=== PATIENT | male | born 1945 | race Caucasian/White ===

== ENCOUNTER 2016-08-16 10:41 | Emergency (ER) | payer OTHER ==
[~2016-08-16] VITALS: Ht 175.3 cm; Wt 108.9 kg
[~2016-08-16 10:41] MED LIST: JANUVIA25 MG; MEV20; VERAPAMIL120 MG
[2016-08-16 13:46] VITALS: BP 174/86
== END 2016-08-16 13:46 | disposition home or self-care (01) ==
LOC: ED 10:41
DX: L03.031 Cellulitis of right toe (principal); E11.621 Type 2 diabetes mellitus with foot ulcer; L97.519 Non-pressure chronic ulcer of other part of right foot with unspecified severity; E66.9 Obesity, unspecified; E78.5 Hyperlipidemia, unspecified; I11.0 Hypertensive heart disease with heart failure; I50.9 Heart failure, unspecified; R60.0 Localized edema; Z98.890 Other specified postprocedural states; Z86.718 Personal history of other venous thrombosis and embolism; Z89.421 Acquired absence of other right toe(s)
CPT/HCPCS: Q0092

== ENCOUNTER 2017-02-04 09:50 | Inpatient (IN) | payer OTHER ==
[~2017-02-04] VITALS: Ht 175.3 cm; Wt 107.7 kg
[2017-02-04 10:41] LABS: BASOPHIL % 0.5 % (0-2); PLATELET COUNT 220 x10^3mcL (130-400)
[2017-02-04 11:14] LABS: BILIRUBIN TOTAL 0.54 mg/dL (0.20-1.00); CALCIUM 8.6 mg/dL (8.5-10.1); CREATININE SERUM 2.4 mg/dL (0.7-1.3); POTASSIUM SERUM 4.3 mmol/L (3.5-5.1); TOTAL PROTEIN, SERUM 6.8 g/dL (6.4-8.2)
[2017-02-04 11:16] LABS: ALBUMIN 3.1 g/dL (3.4-5.0)
[2017-02-04] MEDS ORDERED: SOMA350 MG (12:22)
[2017-02-04] MEDS ORDERED: CARVEDILOL3.125 M1 (12:22)
[2017-02-04] MEDS ORDERED: ELIQUIS2.5 MG (12:22)
[2017-02-04] MEDS ORDERED: ISOSORBIDE MONO30 MG (12:22)
[2017-02-04] MEDS ORDERED: NORCO1 TA2 PO (12:23)
[2017-02-04] MEDS ORDERED: LASIX20 MG (12:23)
[2017-02-04] MEDS ORDERED: LIPITOR40 MG (12:23)
[2017-02-04] MEDS ORDERED: HUMULIN 70/303 ML SC (12:42)
[2017-02-04] MEDS ORDERED: HUMULIN N100 U/1 ML SC ×2 (12:42→15:07)
[2017-02-04] MEDS ORDERED: LIPITOR40 MG PO (12:43)
[2017-02-04] MEDS ORDERED: CORE25 PO (12:43)
[2017-02-04] MEDS ORDERED: SOMA350 MG PO (12:43)
[2017-02-04] MEDS ORDERED: COZAAR100 MG PO (12:44)
[2017-02-04] MEDS ORDERED: LASIX40 MG PO (12:44)
[2017-02-04] MEDS ORDERED: FLO4 PO (12:44)
[2017-02-04] MEDS ORDERED: NOR10T PO (12:45)
[2017-02-04] MEDS ORDERED: ISOSORBIDE MONO60 MG PO (12:45)
[2017-02-04 13:36] VITALS: BP 169/78
[2017-02-04 13:43] LABS: MAGNESIUM 2.1 mg/dL (1.8-2.4); PHOSPHOROUS 4.4 mg/dL (2.5-4.9)
[2017-02-04 13:44] LABS: CHOLESTEROL/HDL RATIO 8.4
[2017-02-04 13:46] VITALS: Ht 175.3 cm; Wt 107.7 kg
[2017-02-04 13:52] LABS: FREE T4 1.14 ng/dL (0.76-1.46); FREE THYROXINE INDEX 2.6 ug/dL (1.4-4.5); T4(THYROXINE) 7.1 ug/dL (4.7-13.3)
[2017-02-04 14:02] LABS: T3 TOTAL 1.01 ng/mL
[2017-02-04] MEDS ORDERED: ELIQUIS5 MG PO (15:03)
[2017-02-04] MEDS ORDERED: HUMULIN R100 U/1 M1 SC ×2 (17:19→17:20)
[2017-02-04 18:31] VITALS: BP 128/71
[2017-02-04 18:37] LABS: CALCIUM 8.3 mg/dL (8.5-10.1); CARBON DIOXIDE 27.4 mmol/L (21-32); CREATININE SERUM 2.3 mg/dL (0.7-1.3); POTASSIUM SERUM 4.3 mmol/L (3.5-5.1)
[2017-02-04 21:22] VITALS: BP 131/62
[2017-02-04 22:29] LABS: microscopic required? YES; urine erythrocyte NEGATIVE (NEGATIVE)
[2017-02-04 22:37] LABS: AMPHETAMINE QUAL UR NONE DETECTED (NEG <=1000)
[2017-02-05 04:21] LABS: BASOPHIL % 0.4 % (0-2); PLATELET COUNT 217 x10^3mcL (130-400); RED CELL DISTRIBUTION WIDTH 14.1 % (11.5-14.5)
[2017-02-05 04:24] LABS: CALCIUM 8.5 mg/dL (8.5-10.1); CARBON DIOXIDE 28.9 mmol/L (21-32); CREATININE SERUM 2.4 mg/dL (0.7-1.3); POTASSIUM SERUM 3.8 mmol/L (3.5-5.1)
[2017-02-05 05:25] VITALS: BP 142/67
[2017-02-05 09:41] VITALS: BP 141/64
[2017-02-05 14:05] VITALS: BP 122/56
[2017-02-05 17:37] VITALS: BP 142/74
[2017-02-05 20:40] VITALS: BP 122/53
[2017-02-05 22:31] VITALS: BP 140/61
[2017-02-06 05:55] VITALS: BP 129/59
[2017-02-06 06:25] LABS: BASOPHIL % 0.6 % (0-2); PLATELET COUNT 222 x10^3mcL (130-400); RED CELL DISTRIBUTION WIDTH 14.1 % (11.5-14.5)
[2017-02-06 06:31] LABS: CALCIUM 8.9 mg/dL (8.5-10.1); CARBON DIOXIDE 26.6 mmol/L (21-32); CREATININE SERUM 2.2 mg/dL (0.7-1.3); POTASSIUM SERUM 3.8 mmol/L (3.5-5.1)
[2017-02-06 09:33] VITALS: BP 167/59
[2017-02-06 09:41] VITALS: BP 136/73
[2017-02-06 12:23] VITALS: BP 149/61
[2017-02-06 16:52] VITALS: BP 122/66
[2017-02-06 21:13] VITALS: BP 141/61
[2017-02-07 05:34] VITALS: BP 102/47
[2017-02-07 06:29] LABS: CALCIUM 8.8 mg/dL (8.5-10.1); CARBON DIOXIDE 27.9 mmol/L (21-32); CREATININE SERUM 2.4 mg/dL (0.7-1.3); MAGNESIUM 2.4 mg/dL (1.8-2.4); POTASSIUM SERUM 4.2 mmol/L (3.5-5.1)
[2017-02-07 06:47] LABS: BASOPHIL % 0.6 % (0-2); PLATELET COUNT 206 x10^3mcL (130-400); RED CELL DISTRIBUTION WIDTH 14.5 % (11.5-14.5)
[2017-02-07 08:57] VITALS: BP 165/81
[2017-02-07 14:00] VITALS: BP 138/65
[2017-02-07 18:10] VITALS: BP 133/73
[2017-02-07 20:57] VITALS: BP 169/67
[2017-02-08 05:15] VITALS: BP 150/75
[2017-02-08 06:20] LABS: CARBON DIOXIDE 28.7 mmol/L (21-32); CREATININE SERUM 2.1 mg/dL (0.7-1.3); POTASSIUM SERUM 4.2 mmol/L (3.5-5.1)
[2017-02-08 06:31] LABS: BASOPHIL % 0.8 % (0-2); PLATELET COUNT 230 x10^3mcL (130-400)
[2017-02-08 06:37] LABS: RED CELL DISTRIBUTION WIDTH 14.6 % (11.5-14.5)
[2017-02-08 08:58] VITALS: BP 129/54
[2017-02-08 13:02] VITALS: BP 141/53
[2017-02-08 17:34] VITALS: BP 158/68
[2017-02-08 20:36] VITALS: BP 148/70
[2017-02-09 05:27] VITALS: BP 133/61
[2017-02-09 08:29] VITALS: BP 132/56
[2017-02-09] MEDS ORDERED: HUMULIN10 ML SC (09:54)
[2017-02-09] MEDS ORDERED: HUMULIN 70/303 ML SC (11:37)
[2017-02-09 11:40] VITALS: BP 132/56
[2017-02-09 12:59] VITALS: BP 108/50
[2017-02-09 15:04] VITALS: BP 109/57
== END 2017-02-09 17:36 | disposition home or self-care (01) | DRG 280 ==
LOC: ED 09:50 → DU 12:28 → MU 02-09 13:47
PROVIDERS: Emergency Medicine; ADMIT Family Medicine
DX: I21.A1 Myocardial infarction type 2 (principal); G93.41 Metabolic encephalopathy; N17.0 Acute kidney failure with tubular necrosis; E87.1 Hypo-osmolality and hyponatremia; E44.0 Moderate protein-calorie malnutrition; S33.5XXA Sprain of ligaments of lumbar spine, initial encounter; S23.3XXA Sprain of ligaments of thoracic spine, initial encounter; E11.22 Type 2 diabetes mellitus with diabetic chronic kidney disease; I12.9 Hypertensive chronic kidney disease with stage 1 through stage 4 chronic kidney disease, or unspecified chronic kidney disease; N18.9 Chronic kidney disease, unspecified; E11.65 Type 2 diabetes mellitus with hyperglycemia; E11.51 Type 2 diabetes mellitus with diabetic peripheral angiopathy without gangrene; E86.0 Dehydration; M43.16 Spondylolisthesis, lumbar region; G89.29 Other chronic pain; N40.0 Benign prostatic hyperplasia without lower urinary tract symptoms; I25.2 Old myocardial infarction; E66.9 Obesity, unspecified; Z68.34 Body mass index [BMI] 34.0-34.9, adult; Z91.81 History of falling; Z89.421 Acquired absence of other right toe(s); Z79.4 Long term (current) use of insulin; Z79.01 Long term (current) use of anticoagulants; Z86.718 Personal history of other venous thrombosis and embolism; Z87.891 Personal history of nicotine dependence; Z95.1 Presence of aortocoronary bypass graft; W18.39XA Other fall on same level, initial encounter; Y92.018 Other place in single-family (private) house as the place of occurrence of the external cause
CPT/HCPCS: 72072; 83880; 84439; 97110-GP; 97116-GP; 97530-GP; A9500; J1815; J1885; J2785; J7030; J7042; J8597; Q0092

== ENCOUNTER 2017-04-04 10:43 | Inpatient (IN) | payer OTHER ==
[~2017-04-04] VITALS: Ht 175.3 cm; Wt 113.1 kg
[~2017-04-04 10:43] MED LIST changes: +CARVEDILOL3.125 M1; +CORE25 PO; +COZAAR100 MG PO; +ELIQUIS2.5 MG; +ELIQUIS5 MG PO; +FLO4 PO; +HUMULIN 70/303 ML SC; +HUMULIN N100 U/1 ML SC; +HUMULIN R100 U/1 M1 SC; +HUMULIN10 ML SC; +ISOSORBIDE MONO30 MG; +ISOSORBIDE MONO60 MG PO; +LASIX20 MG; +LASIX40 MG PO; +LIPITOR40 MG; +LIPITOR40 MG PO; +NOR10T PO; +NORCO1 TA2 PO; +SOMA350 MG; +SOMA350 MG PO
[2017-04-04 12:09] LABS: BASOPHIL % 0.3 % (0-2); PLATELET COUNT 214 x10^3mcL (130-400); RED CELL DISTRIBUTION WIDTH 14.1 % (11.5-14.5)
[2017-04-04 12:18] LABS: CALCIUM 8.5 mg/dL (8.5-10.1); CARBON DIOXIDE 24.3 mmol/L (21-32); CREATININE SERUM 1.9 mg/dL (0.7-1.3); POTASSIUM SERUM 3.7 mmol/L (3.5-5.1)
[2017-04-04 12:27] LABS: BILIRUBIN TOTAL 0.55 mg/dL (0.20-1.00); TOTAL PROTEIN, SERUM 7.1 g/dL (6.4-8.2)
[2017-04-04 12:33] LABS: CK-MB 3.5 ng/mL (0-3.6)
[2017-04-04 12:41] LABS: ALBUMIN 2.9 g/dL (3.4-5.0)
[2017-04-04 14:16] VITALS: BP 165/77
[2017-04-04 14:19] LABS: T3 TOTAL 0.86 ng/mL
[2017-04-04 15:04] LABS: MAGNESIUM 1.9 mg/dL (1.8-2.4)
[2017-04-04 15:05] LABS: CHOLESTEROL/HDL RATIO 7.3
[2017-04-04 15:17] LABS: FREE T4 0.93 ng/dL (0.76-1.46); FREE THYROXINE INDEX 2.3 ug/dL (1.4-4.5); T4(THYROXINE) 6.5 ug/dL (4.7-13.3)
[2017-04-04 16:00] VITALS: BP 176/74
[2017-04-04 17:36] VITALS: BP 182/81
[2017-04-04 19:00] VITALS: Ht 175.3 cm; Wt 113.1 kg
[2017-04-04 19:11] VITALS: BP 155/85
[2017-04-04 19:39] LABS: UA SPECIFIC GRAVITY 1.015 (1.005-1.035); microscopic required? YES; urine erythrocyte 1+ (NEGATIVE)
[2017-04-04 20:00] LABS: AMPHETAMINE QUAL UR NONE DETECTED (NEG <=1000)
[2017-04-04 21:15] VITALS: BP 147/101
[2017-04-05 02:40] LABS: BASOPHIL % 0.5 % (0-2); PLATELET COUNT 230 x10^3mcL (130-400); RED CELL DISTRIBUTION WIDTH 13.3 % (11.5-14.5)
[2017-04-05 02:48] LABS: CALCIUM 8.6 mg/dL (8.5-10.1); CREATININE SERUM 2.4 mg/dL (0.7-1.3); MAGNESIUM 2.1 mg/dL (1.8-2.4); PHOSPHOROUS 2.9 mg/dL (2.5-4.9); POTASSIUM SERUM 4.6 mmol/L (3.5-5.1)
[2017-04-05 05:36] VITALS: BP 183/89
[2017-04-05 09:11] VITALS: BP 137/63
[2017-04-05 12:38] VITALS: BP 152/65
[2017-04-05 17:26] VITALS: BP 131/59
[2017-04-05 21:20] VITALS: BP 130/51
[2017-04-06 05:25] VITALS: BP 153/73
[2017-04-06 08:04] LABS: CALCIUM 8.3 mg/dL (8.5-10.1); CARBON DIOXIDE 22.1 mmol/L (21-32); POTASSIUM SERUM 4.1 mmol/L (3.5-5.1)
[2017-04-06 09:45] VITALS: BP 141/60
[2017-04-06 13:56] VITALS: BP 167/82
[2017-04-06] MEDS ORDERED: HUMULIN 70/303 ML SC (15:38)
[2017-04-06] MEDS ORDERED: HUMULIN10 ML SC (15:38)
[2017-04-06] MEDS ORDERED: LEVAQUIN750 MG PO (15:40)
[2017-04-06] MEDS ORDERED: BD LACTINEX1.4 MG PO (15:41)
[2017-04-06] MEDS ORDERED: PLAVIX75 M1 PO (15:42)
[2017-04-06] MEDS ORDERED: ZESTRIL5 MG PO (15:42)
[2017-04-06] MEDS ORDERED: METOPROLOL TART50 MG PO (15:43)
[2017-04-06] MEDS ORDERED: HYDRALAZINE10 MG PO (15:44)
[2017-04-06 17:06] VITALS: BP 163/76
== END 2017-04-06 18:15 | disposition home or self-care (01) | DRG 291 ==
LOC: ED 10:43 → DU 13:10
PROVIDERS: Emergency Medicine; Family Medicine; Internal Medicine Cardiovascular Disease
DX: I13.0 Hypertensive heart and chronic kidney disease with heart failure and stage 1 through stage 4 chronic kidney disease, or unspecified chronic kidney disease (principal); I50.43 Acute on chronic combined systolic (congestive) and diastolic (congestive) heart failure; J69.0 Pneumonitis due to inhalation of food and vomit; N17.0 Acute kidney failure with tubular necrosis; E44.0 Moderate protein-calorie malnutrition; E87.1 Hypo-osmolality and hyponatremia; N18.9 Chronic kidney disease, unspecified; I25.10 Atherosclerotic heart disease of native coronary artery without angina pectoris; E11.22 Type 2 diabetes mellitus with diabetic chronic kidney disease; E11.65 Type 2 diabetes mellitus with hyperglycemia; E11.51 Type 2 diabetes mellitus with diabetic peripheral angiopathy without gangrene; M51.37 Other intervertebral disc degeneration, lumbosacral region; N40.0 Benign prostatic hyperplasia without lower urinary tract symptoms; D63.8 Anemia in other chronic diseases classified elsewhere; E78.5 Hyperlipidemia, unspecified; E78.1 Pure hyperglyceridemia; E66.9 Obesity, unspecified; Z68.35 Body mass index [BMI] 35.0-35.9, adult; Z95.1 Presence of aortocoronary bypass graft
CPT/HCPCS: 36600; 83880; 84439; J0360; J1644; J1815; J1940; J1956; J2920; J2930; J3490; J7040; J7613; J7620; J7644; Q0092

== ENCOUNTER 2017-05-08 14:56 | Inpatient (IN) | payer OTHER ==
[~2017-05-08] VITALS: Ht 175.3 cm; Wt 111.7 kg
[~2017-05-08 14:56] MED LIST changes: +BD LACTINEX1.4 MG PO; +HYDRALAZINE10 MG PO; +LEVAQUIN750 MG PO; +METOPROLOL TART50 MG PO; +PLAVIX75 M1 PO; +ZESTRIL5 MG PO
[2017-05-08 15:54] LABS: BASOPHIL % 1.5 % (0-2); PLATELET COUNT 222 x10^3mcL (130-400)
[2017-05-08 15:55] LABS: RED CELL DISTRIBUTION WIDTH 14.6 % (11.5-14.5)
[2017-05-08 16:11] LABS: CALCIUM 7.9 mg/dL (8.5-10.1); CREATININE SERUM 2.3 mg/dL (0.7-1.3); POTASSIUM SERUM 4.6 mmol/L (3.5-5.1)
[2017-05-08 16:16] LABS: BILIRUBIN TOTAL 0.2 mg/dL (0.20-1.00); TOTAL PROTEIN, SERUM 6.3 g/dL (6.4-8.2)
[2017-05-08 16:21] LABS: ALBUMIN 2.9 g/dL (3.4-5.0)
[2017-05-08 18:21] LABS: T3 TOTAL 0.93 ng/mL
[2017-05-08 18:24] LABS: MAGNESIUM 2.2 mg/dL (1.8-2.4); PHOSPHOROUS 4.1 mg/dL (2.5-4.9)
[2017-05-08 18:25] LABS: CHOLESTEROL/HDL RATIO 7.3
[2017-05-08 18:31] LABS: FREE T4 0.93 ng/dL (0.76-1.46); FREE THYROXINE INDEX 2.1 ug/dL (1.4-4.5)
[2017-05-08 18:40] VITALS: BP 201/92
[2017-05-08 18:43] VITALS: Ht 175.3 cm; Wt 111.7 kg
[2017-05-08] MEDS ORDERED: CARVEDILOL12.5 M1 PO ×2 (19:01→19:02)
[2017-05-08] MEDS ORDERED: INSR SC (19:34)
[2017-05-08] MEDS ORDERED: ELIQUIS5 MG PO (19:34)
[2017-05-08] MEDS ORDERED: HUMULIN 70/303 ML SC ×2 (19:35→20:18)
[2017-05-08] MEDS ORDERED: CEFDINIR300 M1 PO (19:36)
[2017-05-08] MEDS ORDERED: HUMULIN10 ML SC (20:18)
[2017-05-08 22:19] VITALS: BP 182/75
[2017-05-08 22:45] LABS: RED BLOOD CELLS 3.28 M/mm3 (4.52-5.90)
[2017-05-08 22:54] LABS: IRON 60 ug/dL (65-170); TOTAL IRON BINDING CAPACITY 262 ug/dL (250-450)
[2017-05-09 06:07] LABS: BASOPHIL % 0.4 % (0-2); PLATELET COUNT 242 x10^3mcL (130-400)
[2017-05-09 06:14] VITALS: BP 127/88
[2017-05-09 06:23] LABS: CALCIUM 8.4 mg/dL (8.5-10.1); CARBON DIOXIDE 23.5 mmol/L (21-32); MAGNESIUM 2.4 mg/dL (1.8-2.4); PHOSPHOROUS 4.3 mg/dL (2.5-4.9); POTASSIUM SERUM 4.3 mmol/L (3.5-5.1)
[2017-05-09 07:04] LABS: UA SPECIFIC GRAVITY 1.025 (1.005-1.035); microscopic required? YES; urine erythrocyte TRACE (NEGATIVE)
[2017-05-09 10:00] VITALS: BP 187/84
[2017-05-09 10:46] VITALS: BP 173/76
[2017-05-09 13:31] VITALS: BP 155/77
[2017-05-09 17:42] VITALS: BP 161/77
[2017-05-09 21:19] VITALS: BP 176/86
[2017-05-10 05:49] VITALS: BP 179/83
[2017-05-10 07:52] LABS: BASOPHIL % 0.2 % (0-2); PLATELET COUNT 228 x10^3mcL (130-400)
[2017-05-10 07:54] LABS: RED CELL DISTRIBUTION WIDTH 15.2 % (11.5-14.5)
[2017-05-10 08:16] LABS: MAGNESIUM 2.1 mg/dL (1.8-2.4); PHOSPHOROUS 4.5 mg/dL (2.5-4.9)
[2017-05-10 08:31] LABS: CALCIUM 8.3 mg/dL (8.5-10.1); CARBON DIOXIDE 23.5 mmol/L (21-32)
[2017-05-10 09:28] VITALS: BP 178/73
[2017-05-10 13:13] VITALS: BP 162/67
[2017-05-10 17:42] VITALS: BP 160/61
[2017-05-10 21:00] VITALS: BP 171/71
[2017-05-10 23:00] VITALS: BP 150/68
[2017-05-11 05:04] VITALS: BP 142/62
[2017-05-11 06:46] LABS: BASOPHIL % 0.2 % (0-2); PLATELET COUNT 239 x10^3mcL (130-400)
[2017-05-11 06:49] LABS: CALCIUM 8.1 mg/dL (8.5-10.1); CARBON DIOXIDE 23.9 mmol/L (21-32); CREATININE SERUM 2.2 mg/dL (0.7-1.3); POTASSIUM SERUM 4.8 mmol/L (3.5-5.1)
[2017-05-11 06:58] LABS: RED CELL DISTRIBUTION WIDTH 15.4 % (11.5-14.5)
[2017-05-11 07:52] VITALS: BP 173/73
[2017-05-11 12:54] VITALS: BP 115/54
[2017-05-11 17:13] VITALS: BP 158/75
[2017-05-11 22:08] VITALS: BP 103/61
[2017-05-12] VITALS (11 sets, daily range): BP systolic 123–161; BP diastolic 60–74
[2017-05-12 05:57] LABS: BASOPHIL % 0.6 % (0-2); PLATELET COUNT 260 x10^3mcL (130-400)
[2017-05-12 06:20] LABS: CALCIUM 8.5 mg/dL (8.5-10.1); CARBON DIOXIDE 24.5 mmol/L (21-32); CREATININE SERUM 2.1 mg/dL (0.7-1.3); MAGNESIUM 2.2 mg/dL (1.8-2.4); PHOSPHOROUS 4.7 mg/dL (2.5-4.9); POTASSIUM SERUM 4.7 mmol/L (3.5-5.1)
[2017-05-12 07:00] LABS: RED CELL DISTRIBUTION WIDTH 15.3 % (11.5-14.5)
[2017-05-13 05:15] VITALS: BP 158/67
[2017-05-13 06:17] LABS: BASOPHIL % 0.6 % (0-2); PLATELET COUNT 245 x10^3mcL (130-400)
[2017-05-13 06:36] LABS: CALCIUM 8.6 mg/dL (8.5-10.1); CARBON DIOXIDE 25.5 mmol/L (21-32); CREATININE SERUM 2.3 mg/dL (0.7-1.3); POTASSIUM SERUM 4.7 mmol/L (3.5-5.1)
[2017-05-13 06:38] LABS: RED CELL DISTRIBUTION WIDTH 15.6 % (11.5-14.5)
[2017-05-13 09:33] VITALS: BP 142/64
[2017-05-13] MEDS ORDERED: APR25 PO ×2 (10:37→11:23)
[2017-05-13] MEDS ORDERED: ISOSORBIDE MONO30 MG PO (10:37)
[2017-05-13] MEDS ORDERED: CORE25 PO ×2 (10:40→11:23)
[2017-05-13] MEDS ORDERED: HUMULIN10 ML SC (10:52)
[2017-05-13 13:10] VITALS: BP 142/64
== END 2017-05-13 13:43 | disposition home or self-care (01) | DRG 286 ==
LOC: ED 14:56 → DU 16:57
PROVIDERS: Emergency Medicine; Family Medicine; Internal Medicine Cardiovascular Disease
PROC: B2111ZZ Fluoroscopy of Multiple Coronary Arteries using Low Osmolar Contrast (ICD-10-PCS; 2017-05-12)
PROC: B2181ZZ Fluoroscopy of Left Internal Mammary Bypass Graft using Low Osmolar Contrast (ICD-10-PCS; 2017-05-12)
PROC: B2151ZZ Fluoroscopy of Left Heart using Low Osmolar Contrast (ICD-10-PCS; 2017-05-12)
PROC: B41D1ZZ Fluoroscopy of Aorta and Bilateral Lower Extremity Arteries using Low Osmolar Contrast (ICD-10-PCS; 2017-05-12)
PROC: 4A023N7 Measurement of Cardiac Sampling and Pressure, Left Heart, Percutaneous Approach (ICD-10-PCS; principal; 2017-05-12 09:30)
DX: I24.9 Acute ischemic heart disease, unspecified (principal); I50.43 Acute on chronic combined systolic (congestive) and diastolic (congestive) heart failure; N17.0 Acute kidney failure with tubular necrosis; E44.0 Moderate protein-calorie malnutrition; I13.0 Hypertensive heart and chronic kidney disease with heart failure and stage 1 through stage 4 chronic kidney disease, or unspecified chronic kidney disease; J44.9 Chronic obstructive pulmonary disease, unspecified; D64.9 Anemia, unspecified; N40.0 Benign prostatic hyperplasia without lower urinary tract symptoms; E78.1 Pure hyperglyceridemia; G89.29 Other chronic pain; E11.65 Type 2 diabetes mellitus with hyperglycemia; N18.3 Chronic kidney disease, stage 3 (moderate); E11.42 Type 2 diabetes mellitus with diabetic polyneuropathy; M19.90 Unspecified osteoarthritis, unspecified site; E78.5 Hyperlipidemia, unspecified; E11.51 Type 2 diabetes mellitus with diabetic peripheral angiopathy without gangrene; H40.9 Unspecified glaucoma; E11.22 Type 2 diabetes mellitus with diabetic chronic kidney disease; M54.9 Dorsalgia, unspecified; I25.10 Atherosclerotic heart disease of native coronary artery without angina pectoris; E66.9 Obesity, unspecified; Z95.1 Presence of aortocoronary bypass graft; Z68.35 Body mass index [BMI] 35.0-35.9, adult; I25.2 Old myocardial infarction; Z88.5 Allergy status to narcotic agent; Z89.422 Acquired absence of other left toe(s); Z89.421 Acquired absence of other right toe(s); Z79.4 Long term (current) use of insulin
CPT/HCPCS: CLHCL; 83880; 84439; C1760; C1769; C1894; J0132; J1644; J1815; J1885; J2001; J2250; J3010; J3490; J7030; J7040; J7050; Q0092; Q0163; Q9967

== ENCOUNTER 2017-05-28 06:16 | Inpatient (IN) | payer OTHER ==
[~2017-05-28] VITALS: Ht 175.3 cm; Wt 110.7 kg
[~2017-05-28 06:16] MED LIST changes: +APR25 PO; +CARVEDILOL12.5 M1 PO; +CEFDINIR300 M1 PO; +INSR SC; +ISOSORBIDE MONO30 MG PO
[2017-05-28 06:27] VITALS: Ht 175.3 cm; Wt 110.7 kg
[2017-05-28 07:15] LABS: BASOPHIL % 0.6 % (0-2); PLATELET COUNT 246 x10^3mcL (130-400)
[2017-05-28 07:27] LABS: CALCIUM 8.4 mg/dL (8.5-10.1); CARBON DIOXIDE 23.2 mmol/L (21-32); CREATININE SERUM 2.2 mg/dL (0.7-1.3); POTASSIUM SERUM 4.9 mmol/L (3.5-5.1)
[2017-05-28 07:32] LABS: PHOSPHOROUS 2.6 mg/dL (2.5-4.9); RED CELL DISTRIBUTION WIDTH 15.9 % (11.5-14.5); TOTAL PROTEIN, SERUM 6.9 g/dL (6.4-8.2); URIC ACID 8.1 mg/dL (3.5-7.2)
[2017-05-28 07:34] LABS: ALBUMIN 3.2 g/dL (3.4-5.0)
[2017-05-28 08:26] LABS: BILIRUBIN TOTAL 0.2 mg/dL (0.20-1.00)
[2017-05-28 09:30] LABS: MAGNESIUM 2.4 mg/dL (1.8-2.4)
[2017-05-28 09:32] LABS: CHOLESTEROL/HDL RATIO 7.5
[2017-05-28 09:41] LABS: T3 TOTAL 1.02 ng/mL
[2017-05-28 09:45] LABS: FREE T4 0.86 ng/dL (0.76-1.46); FREE THYROXINE INDEX 1.7 ug/dL (1.4-4.5); T4(THYROXINE) 5.1 ug/dL (4.7-13.3)
[2017-05-28 11:29] LABS: RED BLOOD CELLS 3.78 M/mm3 (4.52-5.90)
[2017-05-28 11:30] LABS: IRON 66 ug/dL (65-170); TOTAL IRON BINDING CAPACITY 305 ug/dL (250-450)
[2017-05-28 12:55] VITALS: BP 170/77
[2017-05-28 14:59] VITALS: BP 158/67
[2017-05-28 15:52] VITALS: BP 187/88
[2017-05-28 16:38] VITALS: BP 163/72
[2017-05-28 19:16] LABS: UA SPECIFIC GRAVITY 1.025 (1.005-1.035); microscopic required? YES; urine erythrocyte NEGATIVE (NEGATIVE)
[2017-05-28 21:37] VITALS: BP 119/71
[2017-05-28 21:52] VITALS: BP 172/80
[2017-05-29] VITALS (7 sets, daily range): BP systolic 109–163; BP diastolic 58–72
[2017-05-29 07:35] LABS: BASOPHIL % 0.9 % (0-2); CALCIUM 8.6 mg/dL (8.5-10.1); CARBON DIOXIDE 24.8 mmol/L (21-32); CREATININE SERUM 1.9 mg/dL (0.7-1.3); MAGNESIUM 2.3 mg/dL (1.8-2.4); PHOSPHOROUS 4.4 mg/dL (2.5-4.9); PLATELET COUNT 212 x10^3mcL (130-400); POTASSIUM SERUM 4.2 mmol/L (3.5-5.1)
[2017-05-29 07:39] LABS: RED CELL DISTRIBUTION WIDTH 15.9 % (11.5-14.5)
[2017-05-30] VITALS (7 sets, daily range): BP systolic 106–167; BP diastolic 61–77
[2017-05-30 05:40] LABS: BASOPHIL % 0.7 % (0-2); PLATELET COUNT 209 x10^3mcL (130-400)
[2017-05-30 05:43] LABS: RED CELL DISTRIBUTION WIDTH 15.9 % (11.5-14.5)
[2017-05-30 05:53] LABS: CALCIUM 8.7 mg/dL (8.5-10.1); CARBON DIOXIDE 23.9 mmol/L (21-32); CREATININE SERUM 2.1 mg/dL (0.7-1.3); PHOSPHOROUS 4.8 mg/dL (2.5-4.9); POTASSIUM SERUM 4.6 mmol/L (3.5-5.1)
[2017-05-30] MEDS ORDERED: KEFLEX500 M1 PO (10:13)
[2017-05-30] MEDS ORDERED: BD LACTINEX1.4 MG PO (10:13)
[2017-05-30] MEDS ORDERED: MOT800 PO (10:16)
[2017-05-31 06:16] VITALS: BP 105/49
[2017-05-31 06:19] LABS: BASOPHIL % 0.5 % (0-2); PLATELET COUNT 213 x10^3mcL (130-400)
[2017-05-31 07:02] LABS: CALCIUM 8.7 mg/dL (8.5-10.1); CARBON DIOXIDE 26.4 mmol/L (21-32); CREATININE SERUM 2.7 mg/dL (0.7-1.3); MAGNESIUM 2.3 mg/dL (1.8-2.4); PHOSPHOROUS 5.4 mg/dL (2.5-4.9); POTASSIUM SERUM 4.5 mmol/L (3.5-5.1)
[2017-05-31 07:05] LABS: RED CELL DISTRIBUTION WIDTH 15.6 % (11.5-14.5)
[2017-05-31 09:30] VITALS: BP 105/49
[2017-05-31] MEDS ORDERED: CLINDAMYCIN HC300 MG PO (09:31)
[2017-05-31] MEDS ORDERED: LEVAQUIN750 MG PO (09:31)
[2017-05-31 09:49] VITALS: BP 119/50
== END 2017-05-31 10:34 | disposition home or self-care (01) | DRG 177 ==
LOC: ED 06:16 → DU 09:10 → EDBEDREQ 09:11 → DU 12:54
PROVIDERS: Emergency Medicine; Family Medicine Sports Medicine
DX: J69.0 Pneumonitis due to inhalation of food and vomit (principal); I50.43 Acute on chronic combined systolic (congestive) and diastolic (congestive) heart failure; N17.0 Acute kidney failure with tubular necrosis; E87.0 Hyperosmolality and hypernatremia; E44.1 Mild protein-calorie malnutrition; M94.0 Chondrocostal junction syndrome [Tietze]; K21.9 Gastro-esophageal reflux disease without esophagitis; I11.0 Hypertensive heart disease with heart failure; I25.10 Atherosclerotic heart disease of native coronary artery without angina pectoris; E11.65 Type 2 diabetes mellitus with hyperglycemia; E11.51 Type 2 diabetes mellitus with diabetic peripheral angiopathy without gangrene; D63.8 Anemia in other chronic diseases classified elsewhere; M51.37 Other intervertebral disc degeneration, lumbosacral region; N40.0 Benign prostatic hyperplasia without lower urinary tract symptoms; E78.5 Hyperlipidemia, unspecified; E66.9 Obesity, unspecified; I25.2 Old myocardial infarction; Z95.1 Presence of aortocoronary bypass graft; Z68.39 Body mass index [BMI] 39.0-39.9, adult; Z79.4 Long term (current) use of insulin
CPT/HCPCS: 83880; 84439; 94150; J1644; J1815; J1940; J2543; J3490; J7040; J7050; J7620; J7626; Q0092

== ENCOUNTER 2017-08-01 18:32 | Emergency (ER) | payer OTHER ==
[~2017-08-01] VITALS: Ht 175.3 cm; Wt 108.9 kg
[~2017-08-01 18:32] MED LIST changes: +CLINDAMYCIN HC300 MG PO; +FUROSEMIDE40 MG PO; +HUMULIN R100 U/1 M1 SQ; +INSN SQ; +KEFLEX500 M1 PO; +MEDDP PO; +MOT800 PO; +PHEDML PO; +VENTOLIN H0.09 MG/A1 INH
[2017-08-01 18:42] VITALS: Ht 175.3 cm; Wt 108.9 kg
[2017-08-01 19:54] VITALS: BP 135/60
== END 2017-08-01 19:54 | disposition home or self-care (01) ==
LOC: ED 18:32
DX: S90.412A Abrasion, left great toe, initial encounter (principal); I10 Essential (primary) hypertension; E11.9 Type 2 diabetes mellitus without complications; J44.9 Chronic obstructive pulmonary disease, unspecified; G90.09 Other idiopathic peripheral autonomic neuropathy; Z88.5 Allergy status to narcotic agent; W22.8XXA Striking against or struck by other objects, initial encounter; Y93.89 Activity, other specified; Y92.89 Other specified places as the place of occurrence of the external cause; Y99.8 Other external cause status

== ENCOUNTER 2017-10-16 14:43 | Inpatient (IN) | payer OTHER ==
[~2017-10-16] VITALS: Ht 175.3 cm; Wt 112.6 kg
[2017-10-16 14:47] VITALS: Ht 175.3 cm; Wt 112.6 kg
[2017-10-16 15:32] LABS: BASOPHIL % 0.7 % (0-2); PLATELET COUNT 292 x10^3mcL (130-400); RED CELL DISTRIBUTION WIDTH 16.5 % (11.5-14.5)
[2017-10-16 15:45] LABS: CALCIUM 8.1 mg/dL (8.5-10.1); CARBON DIOXIDE 25.9 mmol/L (21-32); CHLORIDE SERUM 105 mmol/L (98-107); CREATININE SERUM 2.7 mg/dL (0.7-1.3); GLUCOSE SERUM 157 mg/dL (74-106); POTASSIUM SERUM 3.8 mmol/L (3.5-5.1); SODIUM SERUM 137 mmol/L (136-145)
[2017-10-16 15:51] LABS: ALKALINE PHOSPHATASE 82 U/L (46-116); ALT/SGPT 18 U/L (16-63); AST/SGOT 11 U/L (15-37); BILIRUBIN TOTAL 0.56 mg/dL (0.20-1.00); TOTAL PROTEIN, SERUM 7.3 g/dL (6.4-8.2)
[2017-10-16 15:52] LABS: ALBUMIN 2.8 g/dL (3.4-5.0)
[2017-10-16 17:46] VITALS: BP 186/82
[2017-10-16 20:59] VITALS: BP 172/78
[2017-10-16 22:20] VITALS: BP 165/78
[2017-10-17] VITALS (7 sets, daily range): BP systolic 141–174; BP diastolic 69–81
[2017-10-17 06:29] LABS: BASOPHIL % 0.5 % (0-2); PLATELET COUNT 268 x10^3mcL (130-400)
[2017-10-17 06:56] LABS: ALKALINE PHOSPHATASE 76 U/L (46-116); ALT/SGPT 12 U/L (16-63); AST/SGOT 10 U/L (15-37); BILIRUBIN TOTAL 0.3 mg/dL (0.20-1.00); CALCIUM 8.1 mg/dL (8.5-10.1); CARBON DIOXIDE 24.3 mmol/L (21-32); CHLORIDE SERUM 106 mmol/L (98-107); CREATININE SERUM 2.3 mg/dL (0.7-1.3); GLUCOSE SERUM 254 mg/dL (74-106); MAGNESIUM 2.2 mg/dL (1.8-2.4); POTASSIUM SERUM 4.5 mmol/L (3.5-5.1); SODIUM SERUM 140 mmol/L (136-145)
[2017-10-17 07:04] LABS: ALBUMIN 2.5 g/dL (3.4-5.0); RED CELL DISTRIBUTION WIDTH 16.5 % (11.5-14.5)
[2017-10-17] MEDS ORDERED: INS7030 SC (19:50)
[2017-10-17] MEDS ORDERED: FLOVENT HF0.11 MG/A1 INH (19:51)
[2017-10-17] MEDS ORDERED: HUMULIN N100 U/1 ML SC (19:51)
[2017-10-17] MEDS ORDERED: LATANOPROST2.5 ML OU (19:53)
[2017-10-17] MEDS ORDERED: HYDRALAZINE HCL25 MG PO (19:57)
[2017-10-18 06:03] VITALS: BP 176/77
[2017-10-18 09:13] VITALS: BP 165/71
[2017-10-18 13:11] VITALS: BP 165/71
== END 2017-10-18 15:05 | disposition home or self-care (01) | DRG 603 ==
LOC: ED 14:43 → MU 16:14
PROVIDERS: Emergency Medicine; Internal Medicine Pulmonary Disease
PROC: 0HBNXZZ Excision of Left Foot Skin, External Approach (ICD-10-PCS; principal; 2017-10-17)
PROC: 0HBMXZZ Excision of Right Foot Skin, External Approach (ICD-10-PCS; 2017-10-17)
DX: L03.032 Cellulitis of left toe (principal); N18.4 Chronic kidney disease, stage 4 (severe); E11.621 Type 2 diabetes mellitus with foot ulcer; L97.521 Non-pressure chronic ulcer of other part of left foot limited to breakdown of skin; L97.511 Non-pressure chronic ulcer of other part of right foot limited to breakdown of skin; E11.22 Type 2 diabetes mellitus with diabetic chronic kidney disease; I12.9 Hypertensive chronic kidney disease with stage 1 through stage 4 chronic kidney disease, or unspecified chronic kidney disease; E11.40 Type 2 diabetes mellitus with diabetic neuropathy, unspecified; E11.51 Type 2 diabetes mellitus with diabetic peripheral angiopathy without gangrene; I25.10 Atherosclerotic heart disease of native coronary artery without angina pectoris; M51.36 Other intervertebral disc degeneration, lumbar region; J44.9 Chronic obstructive pulmonary disease, unspecified; H40.9 Unspecified glaucoma; E78.5 Hyperlipidemia, unspecified; E66.9 Obesity, unspecified; Z68.35 Body mass index [BMI] 35.0-35.9, adult; Z89.422 Acquired absence of other left toe(s); Z89.421 Acquired absence of other right toe(s); Z79.4 Long term (current) use of insulin; Z79.01 Long term (current) use of anticoagulants; Z95.1 Presence of aortocoronary bypass graft; Z86.718 Personal history of other venous thrombosis and embolism
CPT/HCPCS: J0696; J1815; J3370; J3535; J7040; Q0092

== ENCOUNTER 2018-01-26 14:55 | Observation (INO) | payer OTHER ==
[~2018-01-26] VITALS: Ht 175.3 cm; Wt 108.9 kg
[~2018-01-26 14:55] MED LIST changes: +FLOVENT HF0.11 MG/A1 INH; +HYDRALAZINE HCL25 MG PO; +INS7030 SC; +LATANOPROST2.5 ML OU
[2018-01-26 15:04] VITALS: Ht 175.3 cm; Wt 108.9 kg
[2018-01-26] MEDS ORDERED: VENTOLIN H0.09 MG/A1 (16:16)
[2018-01-26] MEDS ORDERED: SOMA350 MG (16:19)
[2018-01-26] MEDS ORDERED: CARVEDILOL25 M1 (16:20)
[2018-01-26] MEDS ORDERED: LOSARTAN POTASS25 M1 (16:21)
[2018-01-26] MEDS ORDERED: ATORVASTATIN CA10 M1 (16:22)
[2018-01-26] MEDS ORDERED: NOR5 (16:23)
[2018-01-26 16:40] LABS: PLATELET COUNT 229 x10^3mcL (130-400)
[2018-01-26 16:46] LABS: CALCIUM 9.3 mg/dL (8.5-10.1); CARBON DIOXIDE 27.3 mmol/L (21-32); CHLORIDE SERUM 99 mmol/L (98-107); CREATININE SERUM 2.6 mg/dL (0.7-1.3); GLUCOSE SERUM 304 mg/dL (74-106); POTASSIUM SERUM 3.9 mmol/L (3.5-5.1); SODIUM SERUM 132 mmol/L (136-145)
[2018-01-26 16:52] LABS: ALBUMIN 3.4 g/dL (3.4-5.0); ALKALINE PHOSPHATASE 99 U/L (46-116); ALT/SGPT 20 U/L (16-63); AST/SGOT 10 U/L (15-37); MAGNESIUM 2.2 mg/dL (1.8-2.4); TOTAL PROTEIN, SERUM 7.9 g/dL (6.4-8.2)
[2018-01-26 16:55] LABS: CHOLESTEROL 203 mg/dL (<200); HDL CHOLESTEROL 28 mg/dL (40-60)
[2018-01-26 17:09] LABS: BAND NEUTROPHIL 2 % (0-10); BASOPHIL 0 % (0-2); MONOCYTE 6 % (0-7); SEGMENTED NEUTROPHILS 80 % (37-75); rbc morphology (normal/abnorm) ABNORMAL (NORMAL)
[2018-01-26 19:18] VITALS: BP 157/69
[2018-01-26 20:48] VITALS: BP 167/73
[2018-01-26 23:40] VITALS: BP 157/74
[2018-01-27 05:09] VITALS: BP 150/79
[2018-01-27 06:24] LABS: BASOPHIL % 0.3 % (0-2); PLATELET COUNT 204 x10^3mcL (130-400)
[2018-01-27 06:36] LABS: ALKALINE PHOSPHATASE 83 U/L (46-116); ALT/SGPT 17 U/L (16-63); AST/SGOT 8 U/L (15-37); BILIRUBIN TOTAL 0.37 mg/dL (0.20-1.00); CALCIUM 8.8 mg/dL (8.5-10.1); CHLORIDE SERUM 104 mmol/L (98-107); CREATININE SERUM 2.6 mg/dL (0.7-1.3); GLUCOSE SERUM 178 mg/dL (74-106); MAGNESIUM 2.2 mg/dL (1.8-2.4); PHOSPHOROUS 4.1 mg/dL (2.5-4.9); POTASSIUM SERUM 4.1 mmol/L (3.5-5.1); SODIUM SERUM 138 mmol/L (136-145); TOTAL PROTEIN, SERUM 6.9 g/dL (6.4-8.2)
[2018-01-27 06:37] LABS: ALBUMIN 2.8 g/dL (3.4-5.0)
[2018-01-27 06:39] LABS: RED CELL DISTRIBUTION WIDTH 15.2 % (11.5-14.5)
[2018-01-27 07:19] LABS: UA SPECIFIC GRAVITY 1.025 (1.005-1.035); microscopic required? YES; urine erythrocyte TRACE (NEGATIVE)
[2018-01-27 09:47] VITALS: BP 112/62
[2018-01-27 13:18] VITALS: BP 144/67
[2018-01-27 17:42] VITALS: BP 178/91
[2018-01-27 20:33] VITALS: BP 125/68
[2018-01-28 06:11] VITALS: BP 165/71
[2018-01-28 06:39] VITALS: BP 144/65
[2018-01-28 06:43] LABS: CALCIUM 8.6 mg/dL (8.5-10.1); CHLORIDE SERUM 102 mmol/L (98-107); CREATININE SERUM 2.7 mg/dL (0.7-1.3); GLUCOSE SERUM 215 mg/dL (74-106); MAGNESIUM 2.2 mg/dL (1.8-2.4); POTASSIUM SERUM 3.8 mmol/L (3.5-5.1); SODIUM SERUM 137 mmol/L (136-145)
[2018-01-28 07:40] LABS: BASOPHIL % 0.4 % (0-2); PLATELET COUNT 195 x10^3mcL (130-400)
[2018-01-28 07:41] LABS: RED CELL DISTRIBUTION WIDTH 15.6 % (11.5-14.5)
[2018-01-28 09:40] VITALS: BP 151/79
[2018-01-28 12:27] VITALS: BP 129/64
[2018-01-28 15:55] VITALS: BP 132/59
[2018-01-28 20:56] VITALS: BP 153/72
[2018-01-29 06:02] VITALS: BP 158/77
[2018-01-29 09:52] VITALS: BP 143/58
[2018-01-29 12:11] VITALS: BP 147/63
[2018-01-29 17:25] VITALS: BP 92/53
[2018-01-29 19:30] VITALS: BP 129/58
[2018-01-30 05:41] VITALS: BP 107/59
[2018-01-30 07:15] LABS: BASOPHIL % 0.3 % (0-2); PLATELET COUNT 226 x10^3mcL (130-400)
[2018-01-30 07:18] LABS: C REACTIVE PROTEIN 7.2 mg/dL (<=0.9); CALCIUM 8.2 mg/dL (8.5-10.1); CHLORIDE SERUM 102 mmol/L (98-107); CREATININE SERUM 3.2 mg/dL (0.7-1.3); GLUCOSE SERUM 161 mg/dL (74-106); MAGNESIUM 2.3 mg/dL (1.8-2.4); POTASSIUM SERUM 4.2 mmol/L (3.5-5.1); SODIUM SERUM 136 mmol/L (136-145)
[2018-01-30 07:28] LABS: RED CELL DISTRIBUTION WIDTH 15.6 % (11.5-14.5)
[2018-01-30 08:49] VITALS: BP 140/64
[2018-01-30 11:00] LABS: ERYTHROCYTE SED RATE 93 mm/hr (0-20)
[2018-01-30 12:33] VITALS: BP 111/57
[2018-01-30 17:39] VITALS: BP 150/68
[2018-01-30 21:49] VITALS: BP 156/71
[2018-01-31 05:48] VITALS: BP 144/66
[2018-01-31 07:22] LABS: BASOPHIL % 0.3 % (0-2); PLATELET COUNT 253 x10^3mcL (130-400)
[2018-01-31 07:23] LABS: RED CELL DISTRIBUTION WIDTH 15.4 % (11.5-14.5)
[2018-01-31 07:45] LABS: CALCIUM 8.4 mg/dL (8.5-10.1); CARBON DIOXIDE 24.6 mmol/L (21-32); CHLORIDE SERUM 105 mmol/L (98-107); CREATININE SERUM 3.2 mg/dL (0.7-1.3); GLUCOSE SERUM 125 mg/dL (74-106); MAGNESIUM 2.6 mg/dL (1.8-2.4); POTASSIUM SERUM 4.1 mmol/L (3.5-5.1); SODIUM SERUM 140 mmol/L (136-145)
[2018-01-31 09:30] VITALS: BP 157/67
[2018-01-31 10:42] VITALS: BP 157/67
[2018-01-31 13:40] VITALS: BP 137/91
[2018-01-31 17:40] VITALS: BP 159/72
[2018-01-31 21:24] VITALS: BP 146/58
[2018-02-01 05:13] VITALS: BP 139/65
[2018-02-01 07:36] LABS: BASOPHIL % 0.5 % (0-2); PLATELET COUNT 257 x10^3mcL (130-400)
[2018-02-01 07:46] LABS: RED CELL DISTRIBUTION WIDTH 15.4 % (11.5-14.5)
[2018-02-01 07:58] LABS: CALCIUM 8.1 mg/dL (8.5-10.1); CARBON DIOXIDE 27.7 mmol/L (21-32); CHLORIDE SERUM 108 mmol/L (98-107); CREATININE SERUM 3.1 mg/dL (0.7-1.3); GLUCOSE SERUM 131 mg/dL (74-106); SODIUM SERUM 144 mmol/L (136-145)
[2018-02-01 09:05] VITALS: BP 137/74
[2018-02-01] MEDS ORDERED: AUG250L PO (13:21)
[2018-02-01 13:30] VITALS: BP 131/58
[2018-02-01 15:21] VITALS: BP 131/58
== END 2018-02-01 16:42 | disposition home or self-care (01) | DRG 281 ==
LOC: ED 14:55 → DU 17:53
PROVIDERS: Emergency Medicine; Internal Medicine Pulmonary Disease
DX: I21.4 Non-ST elevation (NSTEMI) myocardial infarction (principal); L03.116 Cellulitis of left lower limb; J44.9 Chronic obstructive pulmonary disease, unspecified; I12.9 Hypertensive chronic kidney disease with stage 1 through stage 4 chronic kidney disease, or unspecified chronic kidney disease; E11.22 Type 2 diabetes mellitus with diabetic chronic kidney disease; E11.621 Type 2 diabetes mellitus with foot ulcer; L97.511 Non-pressure chronic ulcer of other part of right foot limited to breakdown of skin; E11.65 Type 2 diabetes mellitus with hyperglycemia; E11.42 Type 2 diabetes mellitus with diabetic polyneuropathy; E11.51 Type 2 diabetes mellitus with diabetic peripheral angiopathy without gangrene; N18.9 Chronic kidney disease, unspecified; G89.29 Other chronic pain; N40.0 Benign prostatic hyperplasia without lower urinary tract symptoms; I25.10 Atherosclerotic heart disease of native coronary artery without angina pectoris; M54.9 Dorsalgia, unspecified; Z99.3 Dependence on wheelchair; Z79.4 Long term (current) use of insulin; Z89.422 Acquired absence of other left toe(s); Z89.421 Acquired absence of other right toe(s); Z68.35 Body mass index [BMI] 35.0-35.9, adult; Z95.1 Presence of aortocoronary bypass graft; Z87.891 Personal history of nicotine dependence; Z79.01 Long term (current) use of anticoagulants; Z86.718 Personal history of other venous thrombosis and embolism
CPT/HCPCS: 82962; 83880; 97110-GP; 97530-GP; A9500; G0378; J1815; J2060; J2543; J2785; J7030; J7620; Q0092

== ENCOUNTER 2018-08-21 19:58 | Emergency (ER) | payer OTHER ==
[~2018-08-21] VITALS: Ht 180.3 cm; Wt 9.1 kg
[~2018-08-21 19:58] MED LIST changes: +ATORVASTATIN CA10 M1; +AUG250L PO; +CARVEDILOL25 M1; +LOSARTAN POTASS25 M1; +NOR5; +VENTOLIN H0.09 MG/A1
[2018-08-21 20:08] VITALS: Ht 180.3 cm; Wt 9.1 kg
[2018-08-22 00:18] VITALS: BP 149/78
== END 2018-08-22 00:18 | disposition home or self-care (01) ==
LOC: ED 19:58
DX: M54.9 Dorsalgia, unspecified (principal); G89.29 Other chronic pain; I10 Essential (primary) hypertension; E11.9 Type 2 diabetes mellitus without complications; J44.9 Chronic obstructive pulmonary disease, unspecified; Z88.5 Allergy status to narcotic agent; Z88.0 Allergy status to penicillin; Z88.1 Allergy status to other antibiotic agents
CPT/HCPCS: 82962; J1885

== ENCOUNTER 2018-10-21 10:25 | Emergency (ER) | payer OTHER ==
[~2018-10-21] VITALS: Ht 175.3 cm; Wt 108.9 kg
[2018-10-21 10:28] VITALS: Ht 175.3 cm; Wt 108.9 kg
[2018-10-21 11:21] LABS: BASOPHIL % 0.4 % (0-2); PLATELET COUNT 248 x10^3mcL (130-400)
[2018-10-21 11:36] LABS: C REACTIVE PROTEIN 4.6 mg/dL (<=0.9); CALCIUM 8.1 mg/dL (8.5-10.1); CARBON DIOXIDE 18.6 mmol/L (21-32); CHLORIDE SERUM 105 mmol/L (98-107); CREATININE SERUM 3.2 mg/dL (0.7-1.3); GLUCOSE SERUM 337 mg/dL (74-106); SODIUM SERUM 135 mmol/L (136-145)
[2018-10-21 12:08] LABS: ERYTHROCYTE SED RATE 64 mm/hr (0-20)
[2018-10-21 14:08] VITALS: BP 101/40
== END 2018-10-21 14:08 | disposition home or self-care (01) ==
LOC: ED 10:25
PROVIDERS: Specialist
DX: E11.621 Type 2 diabetes mellitus with foot ulcer (principal); L97.529 Non-pressure chronic ulcer of other part of left foot with unspecified severity; L97.519 Non-pressure chronic ulcer of other part of right foot with unspecified severity; I10 Essential (primary) hypertension; J44.9 Chronic obstructive pulmonary disease, unspecified; E11.40 Type 2 diabetes mellitus with diabetic neuropathy, unspecified; G89.29 Other chronic pain; M19.90 Unspecified osteoarthritis, unspecified site; Z89.421 Acquired absence of other right toe(s); Z89.422 Acquired absence of other left toe(s); Z88.1 Allergy status to other antibiotic agents; Z88.5 Allergy status to narcotic agent; Z95.1 Presence of aortocoronary bypass graft
CPT/HCPCS: 82962; J3490; J7030; Q0092

== ENCOUNTER 2018-10-28 12:03 | Emergency (ER) | payer OTHER ==
[~2018-10-28] VITALS: Ht 175.3 cm; Wt 108.9 kg
[2018-10-28 12:09] VITALS: Ht 175.3 cm; Wt 108.9 kg
[2018-10-28 12:48] LABS: BASOPHIL % 0.6 % (0-2); PLATELET COUNT 287 x10^3mcL (130-400)
[2018-10-28 12:49] LABS: RED CELL DISTRIBUTION WIDTH 14.6 % (11.5-14.5)
[2018-10-28 13:14] LABS: CALCIUM 7.9 mg/dL (8.5-10.1); CARBON DIOXIDE 22.8 mmol/L (21-32); CHLORIDE SERUM 100 mmol/L (98-107); CREATININE SERUM 2.9 mg/dL (0.7-1.3); GLUCOSE SERUM 439 mg/dL (74-106); POTASSIUM SERUM 5.1 mmol/L (3.5-5.1); SODIUM SERUM 134 mmol/L (136-145)
[2018-10-28 13:28] LABS: ALKALINE PHOSPHATASE 84 U/L (46-116); ALT/SGPT 25 U/L (16-63); AST/SGOT 9 U/L (15-37); BILIRUBIN TOTAL 0.3 mg/dL (0.20-1.00); C REACTIVE PROTEIN 4.1 mg/dL (<=0.9); TOTAL PROTEIN, SERUM 6.7 g/dL (6.4-8.2)
[2018-10-28 13:30] LABS: ALBUMIN 2.7 g/dL (3.4-5.0)
[2018-10-28] MEDS ORDERED: ATORVASTATIN CA40 M1 PO (14:24)
[2018-10-28] MEDS ORDERED: ISOSORBIDE MONO60 MG PO (14:25)
[2018-10-28] MEDS ORDERED: FUROSEMIDE40 MG PO (14:25)
[2018-10-28] MEDS ORDERED: HUMULIN R100 U/1 M1 (14:26)
[2018-10-28] MEDS ORDERED: GOOD SENSE ASPI81 M3 PO (14:27)
[2018-10-28] MEDS ORDERED: LISINOPRIL40 MG PO (14:28)
[2018-10-28] MEDS ORDERED: NOR10 PO (14:28)
[2018-10-28] MEDS ORDERED: HYDRALAZINE HCL25 MG PO (14:29)
[2018-10-28 16:29] LABS: ERYTHROCYTE SED RATE 105 mm/hr (0-20)
[2018-10-28 18:43] VITALS: BP 161/68
== END 2018-10-28 20:09 | disposition short-term general hospital (02) ==
LOC: ED 12:03
PROVIDERS: Emergency Medicine
DX: E11.621 Type 2 diabetes mellitus with foot ulcer (principal); E11.65 Type 2 diabetes mellitus with hyperglycemia; D64.9 Anemia, unspecified; G89.29 Other chronic pain; M54.9 Dorsalgia, unspecified; N18.9 Chronic kidney disease, unspecified; J44.9 Chronic obstructive pulmonary disease, unspecified; E11.40 Type 2 diabetes mellitus with diabetic neuropathy, unspecified; Z88.5 Allergy status to narcotic agent; Z89.421 Acquired absence of other right toe(s); Z95.1 Presence of aortocoronary bypass graft; Z88.1 Allergy status to other antibiotic agents
CPT/HCPCS: J2405; J3010; J3370; J7030; Q0092

== ENCOUNTER 2018-11-19 13:18 | Emergency (ER) | payer OTHER ==
[~2018-11-19] VITALS: Ht 175.3 cm; Wt 108.9 kg
[~2018-11-19 13:18] MED LIST changes: +ATORVASTATIN CA40 M1 PO; +GOOD SENSE ASPI81 M3 PO; +HUMULIN R100 U/1 M1; +LISINOPRIL40 MG PO; +NOR10 PO
[2018-11-19 13:24] VITALS: Ht 175.3 cm; Wt 108.9 kg
[2018-11-19 15:58] LABS: BASOPHIL % 0.7 % (0-2); PLATELET COUNT 305 x10^3mcL (130-400)
[2018-11-19 15:59] LABS: RED CELL DISTRIBUTION WIDTH 15.3 % (11.5-14.5)
[2018-11-19 16:17] LABS: ALKALINE PHOSPHATASE 84 U/L (46-116); ALT/SGPT 36 U/L (16-63); AST/SGOT 14 U/L (15-37); BILIRUBIN TOTAL 0.17 mg/dL (0.20-1.00); CARBON DIOXIDE 27.5 mmol/L (21-32); CHLORIDE SERUM 104 mmol/L (98-107); CHOLESTEROL 165 mg/dL (<200); CREATININE SERUM 2.6 mg/dL (0.7-1.3); GLUCOSE SERUM 212 mg/dL (74-106); LIPASE 154 IU/L (73-393); POTASSIUM SERUM 5.4 mmol/L (3.5-5.1); SODIUM SERUM 139 mmol/L (136-145); TOTAL PROTEIN, SERUM 7.3 g/dL (6.4-8.2)
[2018-11-19 16:20] LABS: ALBUMIN 2.9 g/dL (3.4-5.0); HDL CHOLESTEROL 30 mg/dL (40-60)
[2018-11-19 17:36] LABS: microscopic required? YES; urine erythrocyte NEGATIVE (NEGATIVE)
[2018-11-19 20:00] VITALS: BP 159/82
== END 2018-11-19 20:00 | disposition short-term general hospital (02) ==
LOC: ED 13:18
PROVIDERS: Emergency Medicine
DX: I21.4 Non-ST elevation (NSTEMI) myocardial infarction (principal); E11.621 Type 2 diabetes mellitus with foot ulcer; E11.65 Type 2 diabetes mellitus with hyperglycemia; E11.22 Type 2 diabetes mellitus with diabetic chronic kidney disease; I12.9 Hypertensive chronic kidney disease with stage 1 through stage 4 chronic kidney disease, or unspecified chronic kidney disease; N18.4 Chronic kidney disease, stage 4 (severe); D64.9 Anemia, unspecified; E11.42 Type 2 diabetes mellitus with diabetic polyneuropathy; J44.9 Chronic obstructive pulmonary disease, unspecified; E78.00 Pure hypercholesterolemia, unspecified; I44.7 Left bundle-branch block, unspecified; K42.9 Umbilical hernia without obstruction or gangrene; H40.9 Unspecified glaucoma; M19.90 Unspecified osteoarthritis, unspecified site; E66.9 Obesity, unspecified; Z89.421 Acquired absence of other right toe(s); Z95.1 Presence of aortocoronary bypass graft; Z88.1 Allergy status to other antibiotic agents; Z88.5 Allergy status to narcotic agent
CPT/HCPCS: 36600; 82962; J1815; J7030; Q0092

== ENCOUNTER 2019-01-25 14:27 | Inpatient (IN) | payer OTHER ==
[~2019-01-25] VITALS: Ht 175.3 cm; Wt 97.0 kg
--- NOTE | 2019-01-25 18:30 | NUR ---
INITIAL CONTACT MADE WITH PATIENT IN ER 15 BY THIS RN. FOREIGN COLLECTION CLERK INITIATED PATIENT RESTING QUIETLY. PT DAUGHTER LON CALIX #[phone].
[2019-01-25 18:37] LABS: BASOPHIL % 0.2 % (0-2); PLATELET COUNT 357 x10^3mcL (130-400)
[2019-01-25 18:45] LABS: CALCIUM 8.3 mg/dL (8.5-10.1); CARBON DIOXIDE 22.8 mmol/L (21-32); CHLORIDE SERUM 103 mmol/L (98-107); CREATININE SERUM 2.2 mg/dL (0.7-1.3); GLUCOSE SERUM 407 mg/dL (74-106); POTASSIUM SERUM 5.2 mmol/L (3.5-5.1); RED CELL DISTRIBUTION WIDTH 14.9 % (11.5-14.5); SODIUM SERUM 136 mmol/L (136-145)
[2019-01-25 18:50] LABS: ALKALINE PHOSPHATASE 110 U/L (46-116); ALT/SGPT 21 U/L (16-63); BILIRUBIN TOTAL 0.17 mg/dL (0.20-1.00); TOTAL PROTEIN, SERUM 7.8 g/dL (6.4-8.2)
[2019-01-25 18:51] LABS: ALBUMIN 2.7 g/dL (3.4-5.0)
--- NOTE | 2019-01-25 19:01 | NUR ---
DISCUSSED PATIENT BP WITH DR GRAMAJO 185/67, ACCUCHECK 407. PT C/O HUNGER. PT PRESENTS FROM ENGAGEMENT QUALITY CONSULTANT FOR RECHECK OF DIABETIC FOOT ULCERS. LABS INITIATED AND XRAYS COMPLETED. PER DR GRAMAJO PATIENT MAY BE FED AND NO FURTHER ORDERS. NO IV NECESSARY AT THIS TIME.PT RESTING QUIETLY. RESP EVEN AND NONLABORED.
--- NOTE | 2019-01-25 19:34 | NUR ---
BEDSIDE REPORT GIVEN TO ELVA LOPEZ TO RESUME CARE OF PATIENT.
[2019-01-25 19:38] LABS: AST/SGOT 10 U/L (15-37)
--- NOTE | 2019-01-25 19:42 | NUR ---
RECEIEVED REPORT FROM DAY SHIFT RN. QUESTIONS AND CONCERNS ADDRESSED. RECHECKED BLOOD GLUCOSE OF 377 AT THIS TIME.
--- NOTE | 2019-01-25 19:43 | NUR ---
VETERINARY PHARMACOLOGIST AT BEDSIDE FOR BLOOD CULTURES.
--- NOTE | 2019-01-25 20:00 | NUR ---
PATIENT AT THIS TIME STILLL REFUSES IV INSERTION, EDUCATION PROVIDED ABOUT THE IMPORTANCE OF HAVING AN IV.
--- NOTE | 2019-01-25 20:04 | NUR ---
SPOKE WITH DAUGHTER LON CALIX, UPDATES PROVIDED.
--- NOTE | 2019-01-25 20:34 | NUR ---
PATIENT REPORT GIVEN TO BIANKA STEVENSON. QUESTIONS AND CONCERNS ADDRESSED.
--- NOTE | 2019-01-25 20:53 | NUR ---
PER PATIENT STATED THAT HE WILL WAIT UNTIL HE GOES UPSTAIRS TO GET AN IV IN PLACE AND GET HIS MEDICATION WHEN HE GETS UP THERE.
--- NOTE | 2019-01-25 21:10 | NUR ---
RECEIVED FROM ED,PUT IN ROOM 239 B AND MADE COMFORTABLE.ER,JOHN,SAYS HE HAS HX MRSA WOUND.WILL ISOLATE.
--- NOTE | 2019-01-25 21:11 | NUR ---
BIANKA WILL ADMIT PATIENT,THANK YOU.
--- NOTE | 2019-01-25 21:21 | NUR ---
PATIENT HAS NO IV LINE FROM ER.REFUSED.WILL TRY TO TALK TO HIM,HE NEED IT FOR HYDRATION,ATB.
[2019-01-25 21:35] VITALS: BP 141/70
--- NOTE | 2019-01-25 21:51 | NUR ---
DR FRAUSTO MADE AWARE THAT PATIENT REFUSED IV.
--- NOTE | 2019-01-25 22:10 | NUR ---
RECEIVED PT FROM ER, PT ADMIT FOR ODYROMYRLIYID,DM RIGHT FOOT INFECTION. PT IS A/O X3, VERY FORGETFUL. LUNG SOUND CLEAR BILATERAL, NO COUGH, NO SOB, PO 100% IN ROOM AIR. PT IS ON TELE 1. NSR, DENY ANY CHEST PAIN OR DISCOMFORT. BOWEL SOUND PRESENT ALL 4 QUADRANTS, NO DISTENTION, PEDAL PULSE PRESENT BOTH FEET, TRACE EDEMA BLE NOTED. PT REFUSED IV. TRY TO EXPLAIN BENEFIT AND RISK, BUT PT STILL REFUSED TO IV. THERE IS OPEN WOUND AT RIGHT LATERAL FOOT. AND RIGHT HEEL. ALL ADLS ASSIST, ALL NEED MET, CALL LIGHT IN REACH, WILL CONTINUE TO MONITOR.
--- NOTE | 2019-01-25 22:10 | NUR ---
RECEIVED PT FROM ER, PT ADMIT FOR OSTEOMYELITIS,DM RIGHT FOOT INFECTION. PT IS A/O X3, VERY FORGETFUL. LUNG SOUND CLEAR BILATERAL, NO COUGH, NO SOB, PO 100% IN ROOM AIR. PT IS ON TELE 1. NSR, DENY ANY CHEST PAIN OR DISCOMFORT. BOWEL SOUND PRESENT ALL 4 QUADRANTS, NO DISTENTION, PEDAL PULSE PRESENT BOTH FEET, TRACE EDEMA BLE NOTED. PT REFUSED IV. TRY TO EXPLAIN BENEFIT AND RISK, BUT PT STILL REFUSED TO IV. THERE IS OPEN WOUND AT RIGHT LATERAL FOOT. AND RIGHT HEEL. ALL ADLS ASSIST, ALL NEED MET, CALL LIGHT IN REACH, WILL CONTINUE TO MONITOR.
[2019-01-25 23:32] LABS: UA SPECIFIC GRAVITY 1.015 (1.005-1.035); microscopic required? YES; urine erythrocyte TRACE (NEGATIVE)
[2019-01-25 23:38] LABS: AMPHETAMINE QUAL UR NONE DETECTED (See below)
--- NOTE | 2019-01-25 23:45 | NUR ---
PATIENT AGREED TO HAVE IV,SAYS HE NEVER REFUSED FROM ER.NEW IN INITIATED STRTED BY ALONSO CARLTON 20 GUAGE.NS AT 50 CC/ HOUR.
[2019-01-26] VITALS (7 sets, daily range): BP systolic 124–171; BP diastolic 50–76
--- NOTE | 2019-01-26 00:01 | NUR ---
PATIENT ATB NITIATED,VANCO AND AZACTAM,ALSO HAS FLAGYL PO.
--- NOTE | 2019-01-26 02:50 | NUR ---
PATIENT R LATERAL OPEN WOUND,HAS NO DRAINAGE,R HEEL OPEN WOUND,NO DRAINAGE,NO CULTURE DONE PER BIANKA.CHARGE NURSE AWARE.
--- NOTE | 2019-01-26 02:51 | NUR ---
PATIENT ON CONTACT ISOLATION,HAS MRSA ON WOUND/HISTORY.
--- NOTE | 2019-01-26 03:19 | NUR ---
PATIENT CLAIMED HE VOMITED HIS FLAYL AND NORCO ON THE FLOOR,LIQUID NOTED.KEEP CLEAN AND DRY.HE SAYS HE DO NOT WANT ZOFRAN,WILL GVE IF THERE IS ORDER.
--- NOTE | 2019-01-26 06:02 | NUR ---
ATB SCHEDULE.AM MED GIVEN,SWALLOWS WELL.WILL ENDORSE TO NEXT SHIFT.
[2019-01-26 07:10] LABS: BASOPHIL % 0.1 % (0-2); PLATELET COUNT 353 x10^3mcL (130-400)
[2019-01-26 07:18] LABS: RED CELL DISTRIBUTION WIDTH 14.8 % (11.5-14.5)
[2019-01-26 07:20] LABS: CALCIUM 7.9 mg/dL (8.5-10.1); CARBON DIOXIDE 20.6 mmol/L (21-32); CHLORIDE SERUM 106 mmol/L (98-107); CREATININE SERUM 1.9 mg/dL (0.7-1.3); GLUCOSE SERUM 319 mg/dL (74-106); MAGNESIUM 2.2 mg/dL (1.8-2.4); PHOSPHOROUS 2.4 mg/dL (2.5-4.9); POTASSIUM SERUM 4.1 mmol/L (3.5-5.1); SODIUM SERUM 139 mmol/L (136-145)
--- NOTE | 2019-01-26 08:00 | NUR ---
RECEIVED PT IN BED A/A/OX3 FORGETFUL AT TIMES. REPORTS FEELING SLEEPY SINCE HE DID NOT SLEEP WELL LAST NIGHT D/T ASMISSION PROCESS. STATED HE WANTED TO REST AND BE LEFT ALONE MOST OF DAY. MADE AWARE THAT FIRST 24 HRS OF HOSPITALIZATION USUALLY WILL REQUIRE EXAMS AND EVALUATIONS AND UNFORTUNATELY HE WOULD HAVE TO BE CHECKED ON THROUGHT OUT THE DAY. P[T GRUNTED AND STATED HE UNDERSTOOD. MADE AWARE THAT WE WOULD TRY TO LIMIT INTERUPTIONS OF REST. RESP EVEN AND UNLABORED WITH CLEAR BS BILAT. DENIES ANY SOB/CP/PRESSURE AT THIS TIME. NOTED WITH +1 EDEMA TO BLE. ON IVF NS AT 50ML/HR. ABD SOFT, NONTENDER WITH ACTIVE BSX4. DENIES ANY N/V AT THIS TIME. NO DISCOMFORT. VOIDING FREELY USES URINAL. PT NOTED WITH DRY WOUNDS TO LATERAL RT FOOT NEAR TOES AND PLANTAR HEEL AREA. BOTH DRY AND OPEN TO AIR. PT WOULD NOT ALLOW OTHER SKIN ASSESSMENT AT THIS TIME. OTHER THAN WHAT WAS VISIBLE FOR INSPECTIONS. CONTACT ISO FOR HX OF MRSA OF WOUND. CALL LIGHT IN REACH NEEDS ATTENDED TO.
--- NOTE | 2019-01-26 10:40 | NUR ---
PT RESTING AT THIS TIME. WAS MADE AWARE BY STUDENT THAT HE HAD C/O SOME DISCOMFORT. PT AT THIS TIME OBSERVED SLEEPING. WILL CONT TO MONITOR.
--- NOTE | 2019-01-26 14:50 | NUR ---
PT C/O PAIN TO BLE /10 MEDICATED WITH NORCO PO PER EMAR. CALL LIGHT IN REACH NEEDS ATTENDED TO.
--- NOTE | 2019-01-26 17:30 | NUR ---
NOTED ORDER FOR PREVLON BOOT TO RT FOOT. PLACED ORDERED AND ELEVATED ON PILLOW. CALL LIGHT IN REACH NEEDS ATTENDED TO.
--- NOTE | 2019-01-26 18:40 | NUR ---
PT RESTING AT THIS TIME. DENIES ANY DISCOMFORT. CALL LIGHT IN REACH NEEDS ATTENDED TO.
--- NOTE | 2019-01-26 19:45 | NUR ---
PT. AWAKE, ALERT, ORIENTED X4, DENIES HEADACHE OR DIZZINESS. SPEECH CLEAR. ABLE TO FOLLOW COMMANDS. BREAT SOUNDS CLEAR THROUGHOUT LUNG ROSADO, RESP. EVEN, UNLABORED. NO SOB NOTED. PT. ON RA. ABD. SOFT AND ROUND, OBESE. BOWEL SOUNDS ACTIVE. IV SITE W/ DRIED BLOOD TO AC AREA, OTHERWISE, IVF INFUSING WELL. TRACE EDEMA TO BLE. PEDAL PULSES PRESENT. RLE WITH HEEL PROTECTIVE TYPE BOOTIE. OPEN WOUND TO RT.LATERAL FOOT. NO DRAINAGE NOTED. HARVEY TOES W/ POOR HYGIENE, MAL ODOR NOTED.
--- NOTE | 2019-01-26 21:40 | NUR ---
PT.'S DRSG TO RLE REMOVED TO ALLOW US TEST TO BE COMPLETED THEN REWRAPPED. BONISHAE REPLACED BACK ON HIS FOOT. PT. COMFORTABLE IN BED. WILL MONITOR.
--- NOTE | 2019-01-27 01:53 | NUR ---
PT. RESTING QUIETLY. NO C/O PAIN SINCE 2099. IVF INFUSING WELL, SITE REMAINS INTACT. CALL LIGHT WITHIN REACH.
[2019-01-27 05:25] VITALS: BP 114/51
--- NOTE | 2019-01-27 06:14 | NUR ---
PT. RECEIVED ROUTINE DOSE OF SOMA, STILL C/O PAIN IN LOWER BACK AND GENERALIZED BODY PAIN. REQUESTING PRN NORCO. MEDICATION GIVEN ORDERED. IV SITE INTACT. NEW OP SITE APPLIED, SITE CLEANED AND RETAPED. FLUSHING WELL. WILL ENDORSE PT. CARE TO INCOMING NURSE.
[2019-01-27 06:41] LABS: BASOPHIL % 0.4 % (0-2); PLATELET COUNT 359 x10^3mcL (130-400)
[2019-01-27 06:42] LABS: RED CELL DISTRIBUTION WIDTH 14.6 % (11.5-14.5)
--- NOTE | 2019-01-27 07:30 | NUR ---
RECEIVED PATIENT IN BED, IN ISOLATION FOR HX OF MRSA WOUND. ALERT ORIENTED, FOLRGETFUL AT TIMES. 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 IVFINFUSING WELL TO RT A/C. RESP EVEN AND UNLABORED, LUNGS CLEAR ON ROOM AIR. DRESSING AND BOOT NOTED ON RIGHT FOOT. 1+ EDEMA BLE.DENIES ANY PAIN OR DISCOMFORT AT THIS TIME. PATIENT REQUESTING TO BE ALLOWED TO SLEEP HE DID NOT GET MUCH SLEEP LAST NIGHT PER PT.
[2019-01-27 08:00] VITALS: BP 130/54
[2019-01-27 10:41] LABS: CALCIUM 8.4 mg/dL (8.5-10.1); CARBON DIOXIDE 18.4 mmol/L (21-32); CREATININE SERUM 2.2 mg/dL (0.7-1.3); GLUCOSE SERUM 145 mg/dL (74-106); MAGNESIUM 2.2 mg/dL (1.8-2.4); PHOSPHOROUS 3.3 mg/dL (2.5-4.9)
[2019-01-27 11:03] LABS: CHLORIDE SERUM 105 mmol/L (98-107); POTASSIUM SERUM 4.7 mmol/L (3.5-5.1); SODIUM SERUM 137 mmol/L (136-145)
--- NOTE | 2019-01-27 12:43 | NUR ---
PATIENT REMAINS IN BED IN ISOLATION. C/O HAVING 10/10 LOW BACK PAIN. MEDICATED WITH NORCO PO ORDERED. IV SITE RT A/C BLEEDING. NEW IV STARTED ON LEFT HAND.
[2019-01-27] MEDS ORDERED: BACTRIM1 TAB PO (12:49)
--- NOTE | 2019-01-27 12:49 | NUR ---
PHYSICAL THERAPY NOTE SEEN FOR PHYSICAL THERAPY FOLLOW UP SESSION; PATIENT REFUSED
--- NOTE | 2019-01-27 14:07 | NUR ---
1. Recommend continuing [facility] diet.
--- NOTE | 2019-01-27 14:07 | NUR ---
Initial Nutrition Assessment: 239/B GISELA CALIX IA HR Dx: osteomyelitis, diabetic R foot infection PMHx: DM with peripheral neuropathy, HTN, COPD, HLD, CHF, CAD with previous CABGx3 in 2014, BPH, previous amputations of of L fourth bones, DJD, DVT, CKD, PVD PSHx: CABG, amputation og 4th toe on L Labs: BG 319, BUN 23H, CREAT 1.9H, ALB 2.7L, A1C 10.5H Meds: Apresoline, Colace, coreg, D 50%, flagyl, Flomax, Humulin, Lasix, Levaquin, Lipitor, norco, vancomycin, zofran Diet: [facility] PO intake since admission: (01/27) breakfast 100%, (01/26) dinner 50%, lunch 85%, breakfast 35% Ht: 175.26 cm (69") Wt: 97 kg (213#) BMI: 31.6 kg/m2 Bed scale: 213# IBW: 160# (73 kg) %IBW: 133 UBW: 213# Age: 73/M Food Allergies: Skin: Dressing over R foot (2/2 R foot infection) Oh: 18 Edema: +1 BLE GI: Last BM: 01/26 Per H&P, Pt is a 73 YOM with PMH of DM with peripheral neuropathy, HTN, COPD, HLD, CHF, CAD with previous CABGx4 in 2014, BPH, previous amputations of of L second and 5 Metatarsal bones, DJD, DVT, CKD, PVD was brought to ED by his daughter with the statement that his ekg/ecg technician told to come to ED because of the infection of the R foot. RD Note (01/27): Patient was lethargic and said that he ate some of his breakfast this morning. Patient said that currently he is not feeling nauseous but that's how he feels all day. Diabetes diet education was provided, Handout was given to the RN. Problem with: N/V/D/C: none at this time Problems with: Chewing: Swallowing: none Current appetite: fair Recent wt change: none %wt change: n/a Vitamin/Supplement use: none Special diet at home: regular, tries to watch what he eats Physical activity: sedentary Nutrition education given: Diabetes diet education was provided; however, patient was lethargic and not very attentive. NCM handout on 'Type 2 DM nutrition therapy' was given to the RN to put it in his file. Food-drug interactions: Lasix- increased excretion of K, Mg Education given: no Estimated Nutritional Needs Based on adjusted body weight (79 kg) Energy: 9034-2844 kcal/day (25-30 kcal/kg for maintenance) Protein: 79-95 g/day (1.0-1.2 g/kg for maintenance) Fluid: 5775-5668 mL/day (1 mL/kcal) Nutrition Diagnosis: 1. Not ready to make diet lifestyle change related to denial for the need to change as evidenced by A1C 10.5 Intervention 1. Recommend continuing [facility] diet. Monitor/Evaluate Goal: PO intake at least 75% of estimated needs Monitor: PO intake, Labs, GI function F/U in 3-5 days as moderate risk 01/30-
[2019-01-27 14:52] VITALS: Ht 175.3 cm; Wt 97.0 kg
--- NOTE | 2019-01-27 15:17 | NUR ---
PATIENT'S PLAN OF CARE WAS DISCUSSED AND REVIEWED WITH CLAY DIGGER:DEVIN HELM. I HAVE REVIEWED THE DATA COLLECTION BY CLAY DIGGER (NAME):DEVIN HELM. ENTERED ON (DATE/TIME):01/27/19 I CONCUR WITH THE DATA AND ANY EXCEPTIONS OR COMMENTS ARE LISTED BELOW:
--- NOTE | 2019-01-27 15:25 | NUR ---
SPOKE WITH PATIENT'S DAUGHTER DELGADO AND INFORMED HER THAT PATIENT WAS DISCAHRGED. PER DAUGHTER SHE WAS OUT OF TOWN AND CANNOT PICK PATIENT UP UNTIL TOMORROW MORNING. DR WHITTEN NOTIFIED AND ASKED ME TO SPEAK WITH CARLOZ. SPOKE WITH [facility] CHAIR UPHOLSTERER AND PER CARLOZ SHE WILL CALL DAUGHTER. PER PATIENT HE DOES NOT HAVE KEYS TO THE HOUSE, AND THERE IS NO ONE ELSE TO PICK HIM UP.
[2019-01-27 16:05] VITALS: BP 131/42
--- NOTE | 2019-01-27 17:46 | NUR ---
PATIENT REMAINS IN BED APPETITE FAIR THIS SIFT. NO FURTHER C/O PAIN OR DISCOMFORT. DRESSING ON RT FOOT, C/D/I AND BOOT IN PLACE. NO ACUTE DISTRESS NOTED. PATIENT REMAINS IN CONTACT ISOLATION FOR HX MRSA WOUND. PATIENT WILL NOT D/C HOME TONIGHT ODERED DISHCARGE IS IN APPEAL.
--- NOTE | 2019-01-27 17:52 | NUR ---
NO CHANGE IN PATIENT'S CONDITIION NOTED THIS SHIFT. UP OOB AMBULAING IN THE HALLWAYS. NO AGGRESIVE OUTBURTS. DOES VERBALIZE THAT HE JUST WANTS TO GO HOME. 1-1 SITTER WITH PATIENT.
--- NOTE | 2019-01-27 19:29 | NUR ---
RECEIVED PT FROM PREVIOUS SHIFT. PT A/OX3. FORGETFUL AT TIMES. DENIES PAIN. DENIES SOB ON RA. IV PATENT AND INFUSING NS AT 50ML/HR WITH NO S/S OF INFILTRATION. R FOOT WITH DRESSING CDI. L FOOT WITH PROTECTIVE BOOT IN PLACE. CALL LIGHT WTIHIN REACH, BED IN LOW POSITION. WILL CONTINUE TO MONITOR.
[2019-01-27 20:02] VITALS: BP 128/46
--- NOTE | 2019-01-28 04:58 | NUR ---
PT RESTING IN NO ACUTE DISTRESS. RR EVEN AND UNLABORED. CALL LIGHT WITHIN REACH, BED IN LOW POSITION. WILL CONTINUE TO MONITOR.
[2019-01-28 05:27] VITALS: BP 146/53
--- NOTE | 2019-01-28 06:54 | NUR ---
PT REFUSING IV FLUIDS. DR CHACON
--- NOTE | 2019-01-28 07:10 | NUR ---
RECEIVED PT FROM NIGHT NURSE. PT IS LAYING DOWN IN BED WITH HOB UP RESTING WITH EYES CLOSED. PT LOOKS TO BE IN NO ACUTE DISTRESS AT THIS TIME. RESPIRATIONS EVEN AND UNLABORED ON ROOM AIR. DRESSING TO RIGHT FOOT IS CDI. CONTACT PRECAUTIONS IMPLEMENTED. IV SITE PATENT WITH NO SIGNS OF ERYTHEMA OR SWELLING WITH IV FLUIDS INFUSING. CALL LIGHT WITHIN REACH. WILL CONTINUE TO MONITOR.
[2019-01-28 07:36] VITALS: BP 155/67
--- NOTE | 2019-01-28 10:30 | NUR ---
PERFORMED DRESSING CHANGE OF THE RIGHT FOOT. PT TOLERATED WELL. WOUND TO RIGHT FOOT IS BLACK WITH NO DRAINAGE NOTED. NO FOUL SMELL NOTED. EDUCATED PT ON DRESSING CHANGE. DRESSING IS CDI AT THIS TIME. WILL CONTINUE TO MONITOR.
--- NOTE | 2019-01-28 10:45 | NUR ---
PT IS AWAKE, ALERT AND ORIENTED AT TIME OF DISCHARGE. PT LOOKS TO BE IN NO ACUTE DISTRESS AND DENIES ANY PAIN AT TIME OF DISCHARGE. PT DISCHARGED HOME AND WENT TO LOBBY VIA WHEELCHAIR ACCOMPANIED BY NURSE WITH BELONGINGS IN HAND. EDCUATION AND PRESCRIPTIONS PROVIDED TO PT AND PT VERBALIZED UNDERSTANDING AND WAS ABLE TO TEACH BACK TO NURSE TO ENSURE UNDERSTANDING. INFORMED PT OF THE NEED TO MAKE A FOLLOW UP APPOINTMENT WITH PCP WITHIN 1 WEEK OF DISCHARGE. PT VERBALIZED UNDERSTANDING OF INFORMATION. EDUCATED PT ON THE NEED FOR DRESSING CHANGES OF RIGHT FOOT AND PROVIDED PT WITH DRESSING CHANGE SUPPLIES. PT VERBALIZED UNDERSTANDING. IV REMOVED AND CATHETER FULLY INTACT. ALL QUESTIONS AND CONCERNS ADDRESSED.
== END 2019-01-28 10:43 | disposition home or self-care (01) | DRG 638 ==
LOC: ED 14:27 → DU 20:01 → MU 20:01 → DU 21:08 → MU 01-26 11:51
PROVIDERS: Emergency Medicine; General Practice; ADMIT Internal Medicine
DX: E11.69 Type 2 diabetes mellitus with other specified complication (principal); M86.671 Other chronic osteomyelitis, right ankle and foot; L97.415 Non-pressure chronic ulcer of right heel and midfoot with muscle involvement without evidence of necrosis; I13.0 Hypertensive heart and chronic kidney disease with heart failure and stage 1 through stage 4 chronic kidney disease, or unspecified chronic kidney disease; I50.22 Chronic systolic (congestive) heart failure; M86.8X7 Other osteomyelitis, ankle and foot; N17.0 Acute kidney failure with tubular necrosis; E11.621 Type 2 diabetes mellitus with foot ulcer; E11.42 Type 2 diabetes mellitus with diabetic polyneuropathy; E11.65 Type 2 diabetes mellitus with hyperglycemia; E11.22 Type 2 diabetes mellitus with diabetic chronic kidney disease; N18.9 Chronic kidney disease, unspecified; N40.0 Benign prostatic hyperplasia without lower urinary tract symptoms; M19.90 Unspecified osteoarthritis, unspecified site; G89.29 Other chronic pain; E66.9 Obesity, unspecified; I16.0 Hypertensive urgency; E78.5 Hyperlipidemia, unspecified; J44.9 Chronic obstructive pulmonary disease, unspecified; E87.5 Hyperkalemia; E78.00 Pure hypercholesterolemia, unspecified; E11.51 Type 2 diabetes mellitus with diabetic peripheral angiopathy without gangrene; H40.9 Unspecified glaucoma; I25.10 Atherosclerotic heart disease of native coronary artery without angina pectoris; I25.2 Old myocardial infarction; Z68.35 Body mass index [BMI] 35.0-35.9, adult; Z95.1 Presence of aortocoronary bypass graft; Z89.421 Acquired absence of other right toe(s); Z89.422 Acquired absence of other left toe(s); Z79.01 Long term (current) use of anticoagulants; Z86.718 Personal history of other venous thrombosis and embolism; Z88.5 Allergy status to narcotic agent; Z88.0 Allergy status to penicillin; Z79.899 Other long term (current) drug therapy
CPT/HCPCS: 82962; 97530-GP; G0378; J1815; J1956; J3370; J3490; J7030; J7620; Q0092